=== PATIENT | male | born 1990 | race African-American/Black ===

== ENCOUNTER 2019-02-22 21:23 | Emergency (ER) | payer MEDICAID ==
[~2019-02-22] VITALS: Ht 167.6 cm; Wt 79.5 kg
[2019-02-22 21:52] VITALS: BP 144/109
== END 2019-02-22 22:00 | disposition left against medical advice (07) ==
LOC: EMS 21:24
DX: R51 Headache (principal); F17.210 Nicotine dependence, cigarettes, uncomplicated; F12.90 Cannabis use, unspecified, uncomplicated; Z53.21 Procedure and treatment not carried out due to patient leaving prior to being seen by health care provider